=== PATIENT | female | born 1950 | race Two or more races ===

== ENCOUNTER 2017-04-01 18:41 | Emergency (ER) | payer MEDICARE ==
[~2017-04-01] VITALS: Ht 162.6 cm; Wt 75.7 kg
[~2017-04-01 18:41] MED LIST: BROM2.5T3 PO; VALS80TA2 PO
[2017-04-01] MEDS ORDERED: SITA1TAB2 PO (18:57)
[2017-04-01] MEDS ORDERED: OLME20TA15 PO (18:57)
[2017-04-01] MEDS ORDERED: IBUPROFEN 600 MG TABLET PO ONE (19:45)
[2017-04-01] MEDS ORDERED: IBUPROFEN 600 MG TABLET ONE (19:59)
--- NOTE | 2017-04-01 20:26 | NUR ---
Patient discharged to home in stable conditon. Written and verbal after care instructions given. Patient verbalizes understanding of instructions.
== END 2017-04-01 20:27 | disposition home or self-care (01) ==
LOC: ER 18:49
DX: S92.402A Displaced unspecified fracture of left great toe, initial encounter for closed fracture (principal); S80.02XA Contusion of left knee, initial encounter; S40.021A Contusion of right upper arm, initial encounter; S50.812A Abrasion of left forearm, initial encounter; M54.5 Low back pain; I10 Essential (primary) hypertension; E11.9 Type 2 diabetes mellitus without complications; C75.1 Malignant neoplasm of pituitary gland; Z88.6 Allergy status to analgesic agent; Z88.8 Allergy status to other drugs, medicaments and biological substances; W01.0XXA Fall on same level from slipping, tripping and stumbling without subsequent striking against object, initial encounter; Y93.89 Activity, other specified; Y99.8 Other external cause status; Y92.89 Other specified places as the place of occurrence of the external cause
CPT/HCPCS: 73562; 73660; A4663

== ENCOUNTER 2017-04-18 10:46 | Emergency (ER) | payer MEDICARE ==
[~2017-04-18] VITALS: Ht 162.6 cm; Wt 75.7 kg
[~2017-04-18 10:46] MED LIST changes: +OLME20TA21 PO; +SITA1TAB2 PO; -VALS80TA2 PO
--- NOTE | 2017-04-18 11:00 | NUR ---
FILI HUTCHISON AT THE BEDSIDE.
[2017-04-18] MEDS ORDERED: HYDROMORPHONE 1 MG/1 ML DISP.SYRIN IM ONE (11:15)
[2017-04-18] MEDS ORDERED: ONDANSETRON 4 MG/2 ML VIAL IM ONE (11:15)
[2017-04-18] MEDS ORDERED: CHOL10002 PO (11:23)
[2017-04-18] MEDS ORDERED: HYDROMORPHONE 1 MG/1 ML DISP.SYRIN ONE (11:29)
[2017-04-18] MEDS ORDERED: ONDANSETRON 4 MG/2 ML VIAL ONE (11:29)
--- NOTE | 2017-04-18 12:01 | NUR ---
Patient is resting comfortably in bed with eyes closed, NAD noted.
--- NOTE | 2017-04-18 12:46 | NUR ---
Royal murillo in ED - 04/18/17 at 1254 by PERI Patient discharged to home in stable conditon. Written and verbal after care instructions given. Patient verbalizes understanding of instructions.
[2017-04-18] MEDS ORDERED: ONDANSETRON ODT 4 MG TAB.RAPDIS SL ONE (14:00)
--- NOTE | 2017-04-18 14:00 | NUR ---
DR MART MADE PATIENT AWARE OF TEST RESULTS.
[2017-04-18] MEDS ORDERED: ONDANSETRON ODT 4 MG TAB.RAPDIS ONE (14:03)
--- NOTE | 2017-04-18 14:06 | NUR ---
Patient discharged to home in stable conditon. Written and verbal after care instructions given. Patient verbalizes understanding of instructions.
== END 2017-04-18 14:09 | disposition home or self-care (01) ==
LOC: ER 10:46
DX: S22.31XA Fracture of one rib, right side, initial encounter for closed fracture (principal); I10 Essential (primary) hypertension; E11.9 Type 2 diabetes mellitus without complications; C75.1 Malignant neoplasm of pituitary gland; Z88.6 Allergy status to analgesic agent; Z88.8 Allergy status to other drugs, medicaments and biological substances; W18.30XA Fall on same level, unspecified, initial encounter; Y93.89 Activity, other specified; Y99.8 Other external cause status; Y92.89 Other specified places as the place of occurrence of the external cause
CPT/HCPCS: 71101; A4663; J1170; J2405; Q0162

== ENCOUNTER 2017-07-21 11:13 | Emergency (ER) | payer MEDICARE, BC ==
[~2017-07-21] VITALS: Ht 162.6 cm; Wt 74.8 kg
[~2017-07-21 11:13] MED LIST changes: +CHOL10002 PO
[2017-07-21] MEDS ORDERED: IBUPROFEN 600 MG TABLET PO ONE (11:30)
[2017-07-21] MEDS ORDERED: IBUPROFEN 600 MG TABLET ONE (11:47)
--- NOTE | 2017-07-21 13:21 | NUR ---
Patient discharged to home in stable conditon. Written and verbal after care instructions given. Patient verbalizes understanding of instructions.pt walks in steady gait. pt son to come and pick pulling machine operator the pt.
[2017-07-21 13:25] VITALS: BP 139/76
== END 2017-07-21 13:26 | disposition home or self-care (01) ==
LOC: ER 11:13
DX: M25.521 Pain in right elbow (principal); M25.532 Pain in left wrist; M25.421 Effusion, right elbow; E11.9 Type 2 diabetes mellitus without complications; I10 Essential (primary) hypertension; M79.7 Fibromyalgia; Z79.899 Other long term (current) drug therapy
CPT/HCPCS: 73060; 73080; 73090 ×2; 73110; 99284; A4663

== ENCOUNTER 2020-01-07 18:59 | Emergency (ER) | payer MEDICARE, BC ==
[~2020-01-07] VITALS: Ht 157.5 cm; Wt 70.3 kg
[~2020-01-07 18:59] MED LIST changes: +BROM2.5T15 PO; -BROM2.5T3 PO; +OLME20TA13 PO; -OLME20TA21 PO
--- NOTE | 2020-01-07 19:30 | NUR ---
Dr. Fuller at bedside for MSE.
[2020-01-07 21:11] VITALS: BP 140/75
--- NOTE | 2020-01-07 21:11 | NUR ---
Patient discharged to home in stable conditon. Written and verbal after care instructions given. Patient verbalizes understanding of instructions. PT ambulated out of ER with steady gait, no acute signs of distress, VSS, all belongings taken.
== END 2020-01-07 21:12 | disposition home or self-care (01) ==
LOC: ER 19:02
DX: S22.059A Unspecified fracture of T5-T6 vertebra, initial encounter for closed fracture (principal); E11.9 Type 2 diabetes mellitus without complications; I10 Essential (primary) hypertension; Z88.5 Allergy status to narcotic agent; Z79.899 Other long term (current) drug therapy; X58.XXXA Exposure to other specified factors, initial encounter; Y93.89 Activity, other specified; Y92.89 Other specified places as the place of occurrence of the external cause; Y99.8 Other external cause status
CPT/HCPCS: 71250; 73630; A4663

== ENCOUNTER 2020-07-09 20:02 | Emergency (ER) | payer MEDICARE, BC ==
[~2020-07-09] VITALS: Ht 157.5 cm; Wt 73.5 kg
--- NOTE | 2020-07-09 20:25 | NUR ---
Dr. Reeder at bedside for MSE
[2020-07-09 20:46] LABS: *BILIRUBIN,URIN NEGATIVE (NEGATIVE); *BLOOD, URINE NEGATIVE (NEGATIVE); *CLARITY,URINE CLEAR (CLEAR); *COLOR,URINE LIGHT YELLOW (YELLOW); *KETONES,URINE NEGATIVE (NEGATIVE); *UROBILINOGEN,URINE 0.2 E.U./dl (NORMAL); LEUKOCYTE ESTERASE ,URINE NEGATIVE (NEGATIVE); NITRITE, URINE NEGATIVE (NEGATIVE); PH,URINE 6.5 (5.0-8.0); UGLUCOSE NEGATIVE (NEGATIVE)
[2020-07-09 20:48] LABS: BASOPHILS % (AUTO) 0.9 % (0.0-2.0); EOSINOPHILS # (AUTO) 0.1 K/uL (0.0-0.7); EOSINOPHILS % (AUTO) 2.6 % (0.0-7.0); HEMATOCRIT 38.5 % (31.2-41.9); HEMOGLOBIN 12.8 g/dL (10.9-14.3); LYMPHOCYTES # (AUTO) 1.5 K/uL (20.0-40.0); LYMPHOCYTES % (AUTO) 34.7 % (20.5-51.5); MEAN CORPUSCULAR HGB CONC 33 g/dL (32.3-35.6); MEAN CORPUSCULAR VOLUME 84.4 fL (75.5-95.3); MONOCYTES # (AUTO) 0.4 K/uL (2.0-10.0); MONOCYTES % (AUTO) 9.7 % (0.0-11.0); NEUTROPHILS # (AUTO) 2.3 K/uL (1.8-8.9); NEUTROPHILS % (AUTO) 52.1 % (38.5-71.5); PLATELET COUNT (AUTO) 192 K/uL (179-408); RED BLOOD CELL COUNT(AUTO) 4.57 MIL/uL (3.63-4.92); WHITE BLOOD COUNT (AUTO) 4.4 K/uL (3.8-11.8)
[2020-07-09 20:56] LABS: CREATININE 1.2 mg/dL (0.6-1.3); POTASSIUM 3.8 mmol/L (3.5-5.1)
[2020-07-09 21:02] LABS: BILIRUBIN,TOTAL 0.3 mg/dL (0.2-1.0); TOTAL PROTEIN, SERUM 7.5 g/dL (6.4-8.2)
--- NOTE | 2020-07-09 21:25 | NUR ---
US at bedside
--- NOTE | 2020-07-09 21:53 | NUR ---
Patient discharged to home in stable condition. Written and verbal after care instructions given. Patient verbalizes understanding of instructions. Stressed follow up or return to ER for worsening s/s. aa/ox4. ambulatory with steady gait all belongings with pt
[2020-07-09 22:56] VITALS: BP 128/75
== END 2020-07-09 21:53 | disposition home or self-care (01) ==
LOC: ER 20:04
DX: R60.0 Localized edema (principal); R00.1 Bradycardia, unspecified; Z88.8 Allergy status to other drugs, medicaments and biological substances; I10 Essential (primary) hypertension; E11.9 Type 2 diabetes mellitus without complications; Z79.84 Long term (current) use of oral hypoglycemic drugs; G89.29 Other chronic pain; F41.9 Anxiety disorder, unspecified; M54.5 Low back pain; D36.9 Benign neoplasm, unspecified site
CPT/HCPCS: 36415; 85025; 85610; 93005; A4663

== ENCOUNTER 2021-09-16 12:10 | Inpatient (IN) | payer MEDICARE, BC ==
[~2021-09-16] VITALS: Ht 157.5 cm; Wt 72.6 kg
--- NOTE | 2021-09-16 12:12 | NUR ---
Pt ambulated to room 4B, and nursing staff at bedside.
--- NOTE | 2021-09-16 12:20 | NUR ---
Code Stroke activated by .
--- NOTE | 2021-09-16 12:22 | NUR ---
TELE NEUROLOGY ACTIVATED, CONNECT ID#[id number].
--- NOTE | 2021-09-16 12:30 | NUR ---
Pt to CT with Eric DUKE and manager technical services.
[2021-09-16 12:36] LABS: HEMATOCRIT 39.5 % (31.2-41.9); MEAN CORPUSCULAR HEMOGLOBIN 28.6 uug (24.7-32.8); MEAN CORPUSCULAR VOLUME 85.4 fL (75.5-95.3); PLATELET COUNT (AUTO) 184 K/uL (179-408)
[2021-09-16 12:43] LABS: CREATININE 1.2 mg/dL (0.6-1.3); POTASSIUM 4.3 mmol/L (3.5-5.1)
--- NOTE | 2021-09-16 12:45 | NUR ---
Pt back from CT, NAD noted at this time.
--- NOTE | 2021-09-16 13:10 | NUR ---
Problems occured with telemedicine system, we could hear no audio from the machine, but neurologist could hear us fine and see us fine. Called in a report to [employer] [id number] and opened a ticket #[id number].
--- NOTE | 2021-09-16 13:42 | NUR ---
Went through several procedures with tech support on telemed machine. It appears that it is fixed now.
[2021-09-16] MEDS ORDERED: CLOPIDOGREL 75 MG TABLET PO ONE (14:00)
[2021-09-16] MEDS ORDERED: ASPIRIN 81 MG TAB.CHEW PO ONE (14:00)
[2021-09-16] MEDS ORDERED: SWABABLE VALVE TRANSFER SET EA MC ONE (14:17)
[2021-09-16] MEDS ORDERED: IV NORMAL SALINE 250 ML IV ONE (14:17)
[2021-09-16] MEDS ORDERED: IOHEXOL 350 100 ML INFUS..BTL ONE (14:17)
[2021-09-16] MEDS ORDERED: ASPIRIN 81 MG TAB.CHEW ONE (14:22)
[2021-09-16] MEDS ORDERED: CLOPIDOGREL 75 MG TABLET ONE (14:22)
--- NOTE | 2021-09-16 14:35 | NUR ---
AFTER SCANNING PATIENT ABOUT 20 ML OF SALINE FLUSH INFILTRATED AND THE END OF THE SCAN. SPOKE WITH SARA AND FRANKLIN DUKE BOUT IT. SARA PUT COLD PACK ON IT.
--- NOTE | 2021-09-16 15:42 | NUR ---
Left AC IV infiltrated in CT. Pt c/o pain at site, used icepack. replaced IV w/20g left hand.
[2021-09-16] MEDS ORDERED: BROMOCRIPTINE MESYLATE 2.5 MG PO SCH (17:00)
[2021-09-16] MEDS ORDERED: ACETAMINOPHEN 325 MG TABLET PO PRN (17:15)
[2021-09-16] MEDS ORDERED: DEXTROSE 50% 50 ML DISP.SYRIN IV PRN (17:15)
--- NOTE | 2021-09-16 18:35 | NUR ---
Gave pt dinner tray.
--- NOTE | 2021-09-16 21:29 | NUR ---
GAVE REPORT TO LEILANI REYNOLDS.
--- NOTE | 2021-09-16 21:46 | NUR ---
Pt. admitted to TELE , under care of CASH ACCOUNTANT Kushal Molina Dx: Syncope Belongs List completed
[2021-09-16 22:00] VITALS: BP 107/56
[2021-09-16] MEDS: ATORVASTATIN 40 MG TABLET PO SCH (22:00)
[2021-09-16] MEDS: BLOOD SUGAR DIAGNOSTIC 1 EACH STRIP VI SCH (22:00)
--- NOTE | 2021-09-16 22:00 | NUR ---
Admitted patient in Tele unit from ER via [facility] accompanied by staff nurse.Dx of TIA and syncope .Patient AALox4.Denies numbness on Rt arm.No c/o pain or discomfort at this time. On Ra. No s/s of distress noted.IV on left hand patent and intact.Patient able to ambulates to bathroom .Voided well.Call light with in reach.Will continue to monitor.
[2021-09-16] MEDS: INSULIN REGULAR, HUMAN 300 UNIT/3 ML VIAL SQ PRN (22:44)
[2021-09-17] VITALS: BP 115/49
[2021-09-17 04:00] VITALS: BP_SYST 121; BP_SYST 144; BP_DIAS 48; BP_DIAS 60
[2021-09-17] MEDS: PANTOPRAZOLE SODIUM 40 MG TABLET.DR PO SCH (06:12)
[2021-09-17 06:29] LABS: HEMATOCRIT 37.3 % (31.2-41.9); MEAN CORPUSCULAR HEMOGLOBIN 28.4 uug (24.7-32.8); MEAN CORPUSCULAR VOLUME 84.8 fL (75.5-95.3); PLATELET COUNT (AUTO) 175 K/uL (179-408)
[2021-09-17] MEDS: BLOOD SUGAR DIAGNOSTIC 1 EACH STRIP VI SCH ×4 (06:42→20:17)
[2021-09-17 07:00] LABS: THYROID STIMULATING HORMONE 1.66 mIU/mL (0.358-3.740)
[2021-09-17 07:08] LABS: POTASSIUM 4.4 mmol/L (3.5-5.1)
[2021-09-17] MEDS: CHOLECALCIFEROL 1,000 UNIT TABLET PO SCH (08:57)
[2021-09-17] MEDS: LOSARTAN POTASSIUM 50 MG TABLET PO SCH (08:57)
[2021-09-17] MEDS: ASPIRIN EC 81 MG TABLET.DR PO SCH (08:57)
[2021-09-17] MEDS: CLOPIDOGREL 75 MG TABLET PO SCH (08:57)
[2021-09-17] MEDS ORDERED: OLMESARTAN MEDOXOMIL 10 MG PO SCH (09:00)
[2021-09-17] MEDS: INSULIN REGULAR, HUMAN 300 UNIT/3 ML VIAL SQ PRN ×3 (09:03→20:19)
--- NOTE | 2021-09-17 09:36 | NUR ---
Received pt from night club manager RN. Pt is a/o x 4, no complaint of right arm numbness at this time. Pt had consult with Speech therapist and PT, no complications with either, pt is independent in ambulation and able to swallow without aspiration. Pt does not present with any acute distress or discomfort at this time. Cooperative with all medications. Iv intact and patent. Will continue to monitor.
[2021-09-17 10:59] VITALS: BP 143/73
[2021-09-17] MEDS ORDERED: diphenhydrAMINE 50 MG/1 ML VIAL IM ONE (11:00)
[2021-09-17] MEDS ORDERED: PROCHLORPERAZINE EDISYLATE 10 MG/2 ML VIAL IM ONE (11:00)
[2021-09-17 11:27] VITALS: BP 143/73
--- NOTE | 2021-09-17 15:30 | NUR ---
Clinical Social Work Note SW consult was requested for stroke. Patient is a 70 year old female who is alert and oriented x3. Patient presents with a withdrawn mood and flat affect. Patient stated that she was not in for a stroke and she was brought in for numbness. Patient appeared to be confused about her stroke. Patient has the support of her son, Peewee Garcia. SW met with patient and conducted the PHQ9 depression screening and patient scored (2). Oracle Forms Developer informed about the importance of stroke. Patient accepted stroke referrals such as: Stroke Family Warmline at (2-878-8-STROKE) and Caring for a stroke survivor ( ). abatement worker also educated patient on the signs of Stroke and to immediately call 911. Oracle Forms Developer provided patient with a stroke educational packet with information such as; Dietary food, what stroke is, risks, emotional support, finding support, medical management, and effects of stroke.
[2021-09-17 15:32] VITALS: BP 121/63
[2021-09-17] MEDS: ATORVASTATIN 40 MG TABLET PO SCH (20:17)
--- NOTE | 2021-09-18 05:37 | NUR ---
Slept throughout the night. Denies pain or SOB. Patient is alert and oriented. All extremities WNL. PERRLA. Scheduled for MRI today. Safety and comfort provided, no other issues or concerns at this time, will endorse to day shift.
[2021-09-18 06:38] LABS: HEMATOCRIT 39.2 % (31.2-41.9); MEAN CORPUSCULAR HEMOGLOBIN 28.6 uug (24.7-32.8); MEAN CORPUSCULAR VOLUME 85.7 fL (75.5-95.3); PLATELET COUNT (AUTO) 176 K/uL (179-408)
[2021-09-18 06:54] LABS: CREATININE 1.1 mg/dL (0.6-1.3); MAGNESIUM 1.9 mg/dL (1.8-2.4); POTASSIUM 4.7 mmol/L (3.5-5.1)
[2021-09-18] MEDS: PANTOPRAZOLE SODIUM 40 MG TABLET.DR PO SCH (06:59)
[2021-09-18] MEDS: BLOOD SUGAR DIAGNOSTIC 1 EACH STRIP VI SCH ×4 (07:08→20:18)
--- NOTE | 2021-09-18 07:14 | NUR ---
Pt states that if an K[place]a calls to only let her know that she is okay and not to give too much information about her visit.
[2021-09-18] MEDS: INSULIN REGULAR, HUMAN 300 UNIT/3 ML VIAL SQ PRN ×4 (09:48→20:20)
[2021-09-18] MEDS: CHOLECALCIFEROL 1,000 UNIT TABLET PO SCH (09:50)
[2021-09-18] MEDS: CLOPIDOGREL 75 MG TABLET PO SCH (09:50)
[2021-09-18] MEDS: ASPIRIN EC 81 MG TABLET.DR PO SCH (09:50)
[2021-09-18] MEDS: LOSARTAN POTASSIUM 50 MG TABLET PO SCH (09:52)
[2021-09-18 10:32] VITALS: BP 135/63
--- NOTE | 2021-09-18 13:00 | NUR ---
EMT in facility to take patient to [place] for mri, per patient i need valium i cant go without it, i am very claustrophobic. Explained to patient that i need to call [facility] for an order. notified [facility] with new order for valium noted and carried out.
[2021-09-18] MEDS ORDERED: DIAZEPAM 10 MG/2 ML DISP.SYRIN IV PRN (14:00)
--- NOTE | 2021-09-18 15:50 | NUR ---
patient returned from MRI, patient stable at this time, resting in bed
--- NOTE | 2021-09-18 16:00 | NUR ---
patient IV dislodged, asked to insert a line, patient states " i dont think i need it" will try again later
[2021-09-18 20:45] VITALS: BP 146/58
[2021-09-19 00:50] VITALS: BP 122/51
[2021-09-19 05:04] VITALS: BP 157/56
--- NOTE | 2021-09-19 05:35 | NUR ---
Pt slept throughout the night. Denies pain or SOB. Patient refused to have IV reinserted, states that she wants to go home and doesn't need it. Pt educated on importance of having an IV for emergency situations but patient still refuses. Safety and comfort provided. No deficits noted. Able to make needs known. Will endorse to day shift.
[2021-09-19] MEDS: PANTOPRAZOLE SODIUM 40 MG TABLET.DR PO SCH (06:09)
[2021-09-19] MEDS: BLOOD SUGAR DIAGNOSTIC 1 EACH STRIP VI SCH (06:33)
--- NOTE | 2021-09-19 08:00 | NUR ---
awake alert and oriented, denies of any discomfort, ambulatory, tele SB 52, wants to go home today, inform that hospitalist is not in yet and will inform him when he's in, explained plan of care- verbalized understanding, safety measures maintained, call light within reach
[2021-09-19] MEDS: INSULIN REGULAR, HUMAN 300 UNIT/3 ML VIAL SQ PRN (08:31)
[2021-09-19] MEDS: CLOPIDOGREL 75 MG TABLET PO SCH (08:31)
[2021-09-19] MEDS: CHOLECALCIFEROL 1,000 UNIT TABLET PO SCH (08:31)
[2021-09-19] MEDS: ASPIRIN EC 81 MG TABLET.DR PO SCH (08:31)
[2021-09-19] MEDS: LOSARTAN POTASSIUM 50 MG TABLET PO SCH (08:32)
--- NOTE | 2021-09-19 10:56 | NUR ---
Mitchell Molina PUSH BUTTON SWITCH ASSEMBLER here and informed of pt's desire to go home, will be discharged
[2021-09-19] MEDS ORDERED: CLOP75TA33 PO (10:57)
[2021-09-19] MEDS ORDERED: ASPI-618 PO (10:57)
[2021-09-19 11:11] VITALS: BP 158/56
--- NOTE | 2021-09-19 11:30 | NUR ---
Discharge instructions given- prescriptions were e-prescribed to preferred pharmacy- verbalized understanding, id bracelets removed, escorted in stable condition to lobby with all belongings where son is waiting.
== END 2021-09-19 11:30 | disposition home or self-care (01) | DRG 68 ==
LOC: ER 12:10 → TRANSITION 16:59 → TELE3 21:29
PROVIDERS: ADMIT Nurse Practitioner Family; ATTEND Nurse Practitioner Family
DX: I65.21 Occlusion and stenosis of right carotid artery (principal); M79.7 Fibromyalgia; I67.1 Cerebral aneurysm, nonruptured; I10 Essential (primary) hypertension; Z82.49 Family history of ischemic heart disease and other diseases of the circulatory system; G89.29 Other chronic pain; M54.50 Low back pain, unspecified; Z20.822 Contact with and (suspected) exposure to COVID-19; R29.700 NIHSS score 0; E11.65 Type 2 diabetes mellitus with hyperglycemia; Z79.84 Long term (current) use of oral hypoglycemic drugs; D35.2 Benign neoplasm of pituitary gland; R20.0 Anesthesia of skin; Z79.899 Other long term (current) drug therapy
CPT/HCPCS: 36415; 70030-TC; 70450; 70496; 70551; 71045; 83735; 84443; 85025; 85730; 93005; 93307; 93880; 97161; A4663; G0378; J0780; J1200; J3360; J7050; Q9967

== ENCOUNTER 2023-02-27 15:01 | Emergency (ER) | payer BC, MEDICARE, OTHER ==
[~2023-02-27] VITALS: Ht 157.5 cm; Wt 70.8 kg
[~2023-02-27 15:01] MED LIST changes: +ASPI-618 PO; +CLOP75TA33 PO
[2023-02-27] MEDS ORDERED: BACITRACIN ZINC OINT 15 GM TUBE ONE (15:27)
--- NOTE | 2023-02-27 15:28 | NUR ---
Pt seen by MD for bedside Eval. Safety measures in place. Will continue to monitor.
[2023-02-27] MEDS ORDERED: ACETAMINOPHEN ES 500 MG TABLET PO ONE (15:30)
[2023-02-27] MEDS ORDERED: ACETAMINOPHEN ES 500 MG TABLET ONE (15:34)
[2023-02-27] MEDS ORDERED: CYCL10TA9 PO (16:57)
[2023-02-27] MEDS ORDERED: BACITRACIN ZINC OINT 15 GM TUBE TOP ONE (17:00)
[2023-02-27] MEDS ORDERED: CYCLOBENZAPRINE HCL 10 MG TABLET PO ONE (17:00)
[2023-02-27] MEDS ORDERED: CYCLOBENZAPRINE HCL 10 MG TABLET ONE (17:12)
[2023-02-27 17:14] VITALS: BP 155/70
--- NOTE | 2023-02-27 17:14 | NUR ---
Patient discharged to home in stable condition. Written and verbal after care instructions given. Patient verbalizes understanding of instructions. Stressed follow up or return to ER for worsening s/s.
== END 2023-02-27 17:16 | disposition home or self-care (01) ==
LOC: ER 15:03
DX: S62.641A Nondisplaced fracture of proximal phalanx of left index finger, initial encounter for closed fracture (principal); S05.12XA Contusion of eyeball and orbital tissues, left eye, initial encounter; S80.212A Abrasion, left knee, initial encounter; M25.512 Pain in left shoulder; M54.2 Cervicalgia; I10 Essential (primary) hypertension; E11.9 Type 2 diabetes mellitus without complications; Z88.5 Allergy status to narcotic agent; Z88.8 Allergy status to other drugs, medicaments and biological substances; Z79.82 Long term (current) use of aspirin; Z79.01 Long term (current) use of anticoagulants; Z79.899 Other long term (current) drug therapy; W01.0XXA Fall on same level from slipping, tripping and stumbling without subsequent striking against object, initial encounter; Y93.89 Activity, other specified; Y92.89 Other specified places as the place of occurrence of the external cause; Y99.8 Other external cause status
CPT/HCPCS: 70450; 70486; 72125; 73030; 73130; 73140; A4663; A9150

== ENCOUNTER 2023-06-25 18:55 | Inpatient (IN) | payer OTHER ==
[~2023-06-25] VITALS: Ht 157.5 cm; Wt 71.2 kg
[~2023-06-25 18:55] MED LIST changes: +CYCL10TA9 PO
[2023-06-25] MEDS ORDERED: ONDANSETRON 4 MG/2 ML VIAL IV ONE (19:30)
[2023-06-25] MEDS ORDERED: OXYCODONE/APAP 5-325 MG TABLET PO ONE (19:30)
[2023-06-25 19:39] LABS: BASOPHILS # (AUTO) 0.1 K/UL (0.0-0.2); BASOPHILS % (AUTO) 1.8 % (0.0-2.0); DIFFERENTIAL COMMENT 0; EOSINOPHILS # (AUTO) 0.1 K/uL (0.0-0.7); EOSINOPHILS % (AUTO) 2.3 % (0.0-7.0); HEMATOCRIT 41.1 % (31.2-41.9); HEMOGLOBIN 13.5 g/dL (10.9-14.3); LYMPHOCYTES # (AUTO) 1.2 K/uL (0.8-4.8); LYMPHOCYTES % (AUTO) 27.9 % (20.5-51.5); MEAN CORPUSCULAR HEMOGLOBIN 27.7 uug (24.7-32.8); MEAN CORPUSCULAR HGB CONC 33 g/dL (32.3-35.6); MONOCYTES # (AUTO) 0.4 K/uL (0.1-1.30); NEUTROPHILS # (AUTO) 2.5 K/uL (1.8-8.9); PLATELET COUNT (AUTO) 184 K/uL (179-408); RED BLOOD CELL COUNT(AUTO) 4.89 MIL/uL (3.63-4.92); RED CELL DISTRIBUTION WIDTH 14.8 % (12.3-17.7); WHITE BLOOD COUNT (AUTO) 4.3 K/uL (3.8-11.8)
[2023-06-25] MEDS ORDERED: ONDANSETRON 4 MG/2 ML VIAL ONE (19:40)
[2023-06-25] MEDS ORDERED: OXYCODONE/APAP 5-325 MG TABLET ONE (19:40)
[2023-06-25 19:45] LABS: CALCIUM 8.7 mg/dL (8.5-10.1); CARBON DIOXIDE 24 mmol/L (21-32); CHLORIDE 104 mmol/L (98-107); CREATININE 1.2 mg/dL (0.6-1.3); GLUCOSE 166 mg/dL (74-106); POTASSIUM 4.1 mmol/L (3.5-5.1); SODIUM SERUM 140 mmol/L (136-145); UREA NITROGEN, BLOOD 21 mg/dL (7-18)
[2023-06-25 19:54] LABS: ALANINE AMINOTRANSFERASE 19 U/L (14-59); ALBUMIN 3.5 g/dL (3.4-5.0); ALKALINE PHOSPHATASE 93 U/L (50-136); ASPARTATE AMINOTRANSFERASE 16 U/L (15-37); BILIRUBIN,DIRECT 0.1 mg/dL (0.0-0.2); BILIRUBIN,TOTAL 0.3 mg/dL (0.2-1.0); TOTAL PROTEIN, SERUM 7.4 g/dL (6.4-8.2)
[2023-06-25] MEDS ORDERED: SWABABLE VALVE TRANSFER SET EA MC ONE (19:57)
[2023-06-25] MEDS ORDERED: IOHEXOL 350 100 ML INFUS..BTL ONE (19:58)
[2023-06-25] MEDS ORDERED: IV NORMAL SALINE 250 ML IV ONE (19:58)
[2023-06-26] MEDS ORDERED: REMEDY ESSENTIAL ZINC PASTE 113 GM TP PRN (00:30)
[2023-06-26] MEDS ORDERED: MAGNESIUM HYDROXIDE 30 ML LIQUID UDC PO PRN (00:30)
[2023-06-26] MEDS ORDERED: ONDANSETRON 4 MG/2 ML VIAL IV PRN (00:30)
[2023-06-26] MEDS: ENOXAPARIN SODIUM 40 MG/0.4 ML DISP.SYRIN SQ SCH ×2 (02:11→20:43)
[2023-06-26] MEDS: ZOLPIDEM 5 MG TABLET PO PRN ×2 (02:11→02:23)
[2023-06-26 02:30] VITALS: BP 135/52; TEMP 98; O2SAT 94
[2023-06-26 04:13] LABS: *CLARITY,URINE CLEAR (CLEAR); *COLOR,URINE LIGHT YELLOW (YELLOW)
[2023-06-26 04:14] LABS: *BILIRUBIN,URIN NEGATIVE (NEGATIVE); *BLOOD, URINE NEGATIVE (NEGATIVE); *KETONES,URINE NEGATIVE (NEGATIVE); *PROTEIN,URINE NEGATIVE (NEGATIVE); *UROBILINOGEN,URINE 0.2 E.U./dl (NORMAL); LEUKOCYTE ESTERASE ,URINE NEGATIVE (NEGATIVE); NITRITE, URINE NEGATIVE (NEGATIVE); UGLUCOSE NEGATIVE (NEGATIVE)
[2023-06-26 05:29] VITALS: BP 142/65; TEMP 97.6
[2023-06-26] MEDS: PANTOPRAZOLE SODIUM 40 MG TABLET.DR PO SCH (06:19)
[2023-06-26] MEDS ORDERED: HOME MED MISCELLANEOUS XX SCH ×3 (10:00)
[2023-06-26] MEDS ORDERED: CLOPIDOGREL 75 MG TABLET PO SCH (10:00)
[2023-06-26] MEDS ORDERED: ASPIRIN EC 81 MG TABLET.DR PO SCH (10:00)
[2023-06-26] MEDS ORDERED: DEXTROSE 50% 50 ML DISP.SYRIN IV PRN (10:00)
[2023-06-26] MEDS ORDERED: CHOLECALCIFEROL 1,000 UNIT TABLET PO SCH (10:00)
[2023-06-26 12:00] VITALS: BP 153/55; TEMP 98; O2SAT 97
[2023-06-26] MEDS: INSULIN REGULAR, HUMAN 300 UNIT/3 ML VIAL SQ PRN ×2 (12:28→16:54)
[2023-06-26] MEDS: BLOOD SUGAR DIAGNOSTIC 1 EACH STRIP VI SCH ×3 (12:28→20:44)
[2023-06-26] MEDS ORDERED: LOSARTAN POTASSIUM 50 MG TABLET PO SCH (12:40)
[2023-06-26] MEDS: LOSARTAN POTASSIUM 50 MG TABLET PO SCH ×2 (15:39→20:41)
[2023-06-26 16:10] VITALS: BP 123/57; TEMP 98; O2SAT 97
[2023-06-26] MEDS: ACETAMINOPHEN 325 MG TABLET PO PRN (16:55)
[2023-06-26 20:00] VITALS: BP 149/67; TEMP 97.8; O2SAT 98
[2023-06-27] VITALS: BP 115/52; TEMP 98.3; O2SAT 99
[2023-06-27] MEDS: PANTOPRAZOLE SODIUM 40 MG TABLET.DR PO SCH (06:25)
[2023-06-27] MEDS: BLOOD SUGAR DIAGNOSTIC 1 EACH STRIP VI SCH ×4 (06:25→20:18)
[2023-06-27 07:24] LABS: BASOPHILS % (AUTO) 0.5 % (0.0-2.0); EOSINOPHILS # (AUTO) 0.1 K/uL (0.0-0.7); EOSINOPHILS % (AUTO) 1.8 % (0.0-7.0); HEMATOCRIT 39.9 % (31.2-41.9); HEMOGLOBIN 13.2 g/dL (10.9-14.3); LYMPHOCYTES % (AUTO) 31.2 % (20.5-51.5); MEAN CORPUSCULAR HEMOGLOBIN 27.8 uug (24.7-32.8); MEAN CORPUSCULAR HGB CONC 33 g/dL (32.3-35.6); MEAN CORPUSCULAR VOLUME 83.9 fL (75.5-95.3); MONOCYTES # (AUTO) 0.3 K/uL (0.1-1.30); MONOCYTES % (AUTO) 10.1 % (0.0-11.0); NEUTROPHILS # (AUTO) 1.8 K/uL (1.8-8.9); NEUTROPHILS % (AUTO) 56.4 % (38.5-71.5); PLATELET COUNT (AUTO) 164 K/uL (179-408); RED BLOOD CELL COUNT(AUTO) 4.76 MIL/uL (3.63-4.92); RED CELL DISTRIBUTION WIDTH 14.4 % (12.3-17.7); WHITE BLOOD COUNT (AUTO) 3.1 K/uL (3.8-11.8)
[2023-06-27 07:32] LABS: DIFFERENTIAL COMMENT 1
[2023-06-27 07:39] LABS: CALCIUM 8.9 mg/dL (8.5-10.1); CARBON DIOXIDE 30 mmol/L (21-32); CHLORIDE 106 mmol/L (98-107); CREATININE 1.1 mg/dL (0.6-1.3); GLUCOSE 182 mg/dL (74-106); MAGNESIUM 1.9 mg/dL (1.8-2.4); PHOSPHOROUS 3.5 mg/dL (2.5-4.9); POTASSIUM 4.9 mmol/L (3.5-5.1); SODIUM SERUM 142 mmol/L (136-145); THYROID STIMULATING HORMONE 1.235 mIU/mL (0.358-3.740); UREA NITROGEN, BLOOD 17 mg/dL (7-18)
[2023-06-27] MEDS: INSULIN REGULAR, HUMAN 300 UNIT/3 ML VIAL SQ PRN ×4 (08:21→20:19)
[2023-06-27] MEDS: LOSARTAN POTASSIUM 50 MG TABLET PO SCH ×2 (08:31→20:14)
[2023-06-27] MEDS ORDERED: LORAZEPAM 1 MG TABLET PO SCH (08:45)
[2023-06-27 11:50] VITALS: BP 140/59; TEMP 98.4; O2SAT 95
[2023-06-27 15:46] VITALS: BP 117/50; TEMP 98.7; O2SAT 98
[2023-06-27] MEDS ORDERED: IOHEXOL 350 100 ML INFUS..BTL ONE (16:52)
[2023-06-27] MEDS ORDERED: SWABABLE VALVE TRANSFER SET EA MC ONE (16:52)
[2023-06-27] MEDS ORDERED: IV NORMAL SALINE 250 ML IV ONE (16:52)
[2023-06-27] MEDS: ENOXAPARIN SODIUM 40 MG/0.4 ML DISP.SYRIN SQ SCH (20:15)
[2023-06-27 21:23] VITALS: BP 116/50; TEMP 98.2; O2SAT 99
[2023-06-28] MEDS: ACETAMINOPHEN 325 MG TABLET PO PRN (00:53)
[2023-06-28 05:24] VITALS: BP 123/50; TEMP 98.2; O2SAT 99
[2023-06-28] MEDS: PANTOPRAZOLE SODIUM 40 MG TABLET.DR PO SCH (06:02)
[2023-06-28] MEDS: BLOOD SUGAR DIAGNOSTIC 1 EACH STRIP VI SCH ×4 (06:31→21:30)
[2023-06-28 07:36] LABS: BASOPHILS % (AUTO) 0.5 % (0.0-2.0); EOSINOPHILS # (AUTO) 0.1 K/uL (0.0-0.7); EOSINOPHILS % (AUTO) 1.9 % (0.0-7.0); HEMATOCRIT 40.7 % (31.2-41.9); HEMOGLOBIN 13.3 g/dL (10.9-14.3); LYMPHOCYTES # (AUTO) 1.1 K/uL (0.8-4.8); LYMPHOCYTES % (AUTO) 32.5 % (20.5-51.5); MEAN CORPUSCULAR HEMOGLOBIN 27.6 uug (24.7-32.8); MEAN CORPUSCULAR HGB CONC 33 g/dL (32.3-35.6); MEAN CORPUSCULAR VOLUME 84.2 fL (75.5-95.3); MONOCYTES # (AUTO) 0.3 K/uL (0.1-1.30); MONOCYTES % (AUTO) 9.5 % (0.0-11.0); NEUTROPHILS # (AUTO) 1.9 K/uL (1.8-8.9); NEUTROPHILS % (AUTO) 55.6 % (38.5-71.5); PLATELET COUNT (AUTO) 163 K/uL (179-408); RED BLOOD CELL COUNT(AUTO) 4.83 MIL/uL (3.63-4.92); RED CELL DISTRIBUTION WIDTH 14.3 % (12.3-17.7); WHITE BLOOD COUNT (AUTO) 3.4 K/uL (3.8-11.8)
[2023-06-28 07:38] LABS: DIFFERENTIAL COMMENT 1
[2023-06-28] MEDS: LOSARTAN POTASSIUM 50 MG TABLET PO SCH ×2 (08:37→21:49)
[2023-06-28] MEDS: INSULIN REGULAR, HUMAN 300 UNIT/3 ML VIAL SQ PRN ×3 (08:39→17:01)
[2023-06-28 11:04] LABS: CALCIUM 9.3 mg/dL (8.5-10.1); CARBON DIOXIDE 27 mmol/L (21-32); CHLORIDE 102 mmol/L (98-107); CREATININE 1.1 mg/dL (0.6-1.3); GLUCOSE 176 mg/dL (74-106); MAGNESIUM 1.9 mg/dL (1.8-2.4); PHOSPHOROUS 3.6 mg/dL (2.5-4.9); POTASSIUM 4.8 mmol/L (3.5-5.1); SODIUM SERUM 139 mmol/L (136-145); UREA NITROGEN, BLOOD 20 mg/dL (7-18)
[2023-06-28 11:52] VITALS: BP 144/72; TEMP 98.6; O2SAT 99
[2023-06-28 15:56] VITALS: BP 116/70; TEMP 98.5; O2SAT 96
[2023-06-28] MEDS: ALPRAZOLAM 0.25 MG TABLET PO PRN (17:29)
[2023-06-28 20:20] VITALS: BP 116/70; TEMP 98; O2SAT 96
[2023-06-28] MEDS: ATORVASTATIN 20 MG TABLET PO SCH (21:50)
[2023-06-28] MEDS: ENOXAPARIN SODIUM 40 MG/0.4 ML DISP.SYRIN SQ SCH (22:11)
[2023-06-29] MEDS: ACETAMINOPHEN 325 MG TABLET PO PRN ×2 (00:53→23:15)
[2023-06-29] MEDS: PANTOPRAZOLE SODIUM 40 MG TABLET.DR PO SCH (06:25)
[2023-06-29] MEDS: BLOOD SUGAR DIAGNOSTIC 1 EACH STRIP VI SCH ×4 (06:32→20:37)
[2023-06-29] MEDS: ASPIRIN 81 MG TAB.CHEW PO SCH (08:30)
[2023-06-29] MEDS: LOSARTAN POTASSIUM 50 MG TABLET PO SCH ×2 (08:30→20:52)
[2023-06-29] MEDS: INSULIN REGULAR, HUMAN 300 UNIT/3 ML VIAL SQ PRN ×3 (08:32→17:08)
[2023-06-29] MEDS ORDERED: ATOR20TA PO (10:08)
[2023-06-29] MEDS ORDERED: ASPI81TA31 PO (10:08)
[2023-06-29 11:55] VITALS: BP 130/74; TEMP 98.4; O2SAT 96
[2023-06-29 20:00] VITALS: BP 121/55; TEMP 98.4; O2SAT 98
[2023-06-29] MEDS: ATORVASTATIN 20 MG TABLET PO SCH (20:52)
[2023-06-29] MEDS: ENOXAPARIN SODIUM 40 MG/0.4 ML DISP.SYRIN SQ SCH (20:53)
[2023-06-29] MEDS: ALPRAZOLAM 0.25 MG TABLET PO PRN (23:18)
[2023-06-30] MEDS ORDERED: HYDROCODONE/APAP 5-325MG TABLET PO ONE (01:45)
[2023-06-30 04:00] VITALS: BP 114/58; TEMP 97.9
[2023-06-30] MEDS: PANTOPRAZOLE SODIUM 40 MG TABLET.DR PO SCH (06:04)
[2023-06-30] MEDS: BLOOD SUGAR DIAGNOSTIC 1 EACH STRIP VI SCH ×2 (06:31→12:15)
[2023-06-30] MEDS: INSULIN REGULAR, HUMAN 300 UNIT/3 ML VIAL SQ PRN (08:50)
[2023-06-30] MEDS: LOSARTAN POTASSIUM 50 MG TABLET PO SCH (09:29)
[2023-06-30] MEDS: ASPIRIN 81 MG TAB.CHEW PO SCH (09:29)
[2023-06-30 12:00] VITALS: BP 130/58; TEMP 97.9; O2SAT 99
== END 2023-06-30 14:50 | disposition home or self-care (01) | DRG 66 ==
LOC: ER 19:03 → MEDSURG3 06-26 00:28 → TELE3 06-26 01:27 → MEDSURG3 06-27 10:00
PROVIDERS: ADMIT Nurse Practitioner Acute Care; ATTEND Nurse Practitioner Acute Care
DX: I63.9 Cerebral infarction, unspecified (principal); R41.3 Other amnesia; E11.65 Type 2 diabetes mellitus with hyperglycemia; E66.9 Obesity, unspecified; Z68.28 Body mass index [BMI] 28.0-28.9, adult; E78.5 Hyperlipidemia, unspecified; F43.9 Reaction to severe stress, unspecified; I10 Essential (primary) hypertension; M79.7 Fibromyalgia; Z86.73 Personal history of transient ischemic attack (TIA), and cerebral infarction without residual deficits; R51.9 Headache, unspecified; R29.701 NIHSS score 1; R00.1 Bradycardia, unspecified; Z79.84 Long term (current) use of oral hypoglycemic drugs; Z79.82 Long term (current) use of aspirin
CPT/HCPCS: 36415; 70450; 70496; 70551; 71045; 83735; 84100; 84443; 84484; 85025; 85730; 93005; 93307; A4663; G0378; J1650; J1815; J2405; Q9967

== ENCOUNTER 2023-08-16 22:03 | Inpatient (IN) | payer OTHER ==
[~2023-08-16] VITALS: Ht 157.5 cm; Wt 63.6 kg
[~2023-08-16 22:03] MED LIST changes: -ASPI-618 PO; +ASPI81TA31 PO; +ATOR20TA PO; -CHOL10002 PO; -CLOP75TA33 PO; -CYCL10TA9 PO; -SITA1TAB2 PO
[2023-08-16 22:55] LABS: HEMATOCRIT 37.3 % (31.2-41.9); HEMOGLOBIN 12.3 g/dL (10.9-14.3); MEAN CORPUSCULAR VOLUME 85.1 fL (75.5-95.3); RED BLOOD CELL COUNT(AUTO) 4.38 MIL/uL (3.63-4.92)
[2023-08-16 23:06] LABS: BASOPHILS % (AUTO) 0.8 % (0.0-2.0); DIFFERENTIAL COMMENT 0; EOSINOPHILS # (AUTO) 0.1 K/uL (0.0-0.7); EOSINOPHILS % (AUTO) 2.7 % (0.0-7.0); LYMPHOCYTES # (AUTO) 1.2 K/uL (0.8-4.8); LYMPHOCYTES % (AUTO) 30.9 % (20.5-51.5); MEAN CORPUSCULAR HEMOGLOBIN 27.9 uug (24.7-32.8); MEAN CORPUSCULAR HGB CONC 33 g/dL (32.3-35.6); MONOCYTES # (AUTO) 0.4 K/uL (0.1-1.30); MONOCYTES % (AUTO) 9.9 % (0.0-11.0); NEUTROPHILS # (AUTO) 2.2 K/uL (1.8-8.9); NEUTROPHILS % (AUTO) 55.7 % (38.5-71.5); PLATELET COUNT (AUTO) 162 K/uL (179-408); RED CELL DISTRIBUTION WIDTH 14.8 % (12.3-17.7); WHITE BLOOD COUNT (AUTO) 3.9 K/uL (3.8-11.8)
[2023-08-16 23:11] LABS: CALCIUM 8.7 mg/dL (8.5-10.1); CARBON DIOXIDE 26 mmol/L (21-32); CHLORIDE 101 mmol/L (98-107); CREATININE 1.2 mg/dL (0.6-1.3); GLUCOSE 162 mg/dL (74-106); POTASSIUM 3.9 mmol/L (3.5-5.1); SODIUM SERUM 138 mmol/L (136-145); UREA NITROGEN, BLOOD 25 mg/dL (7-18)
[2023-08-16 23:24] LABS: ALANINE AMINOTRANSFERASE 37 U/L (14-59); ALBUMIN 3.5 g/dL (3.4-5.0); ALKALINE PHOSPHATASE 105 U/L (50-136); ASPARTATE AMINOTRANSFERASE 33 U/L (15-37); BILIRUBIN,DIRECT 0.1 mg/dL (0.0-0.2); BILIRUBIN,TOTAL 0.4 mg/dL (0.2-1.0); NT-PRO BNP 207 pg/mL (0-125); TOTAL PROTEIN, SERUM 7.1 g/dL (6.4-8.2)
[2023-08-17] MEDS ORDERED: DIABETIC MED PO (04:27)
[2023-08-17] MEDS ORDERED: Medication Not On Formulary EA (Bromocriptine Mesylate 2.5 MG) PO SCH (04:30)
[2023-08-17] MEDS ORDERED: MAGNESIUM HYDROXIDE 30 ML LIQUID UDC PO PRN (04:30)
[2023-08-17] MEDS ORDERED: REMEDY ESSENTIAL ZINC PASTE 113 GM TP PRN (04:30)
[2023-08-17] MEDS ORDERED: NITROGLYCERIN 0.4 MG/TAB BOTTLE SL PRN (04:30)
[2023-08-17] MEDS ORDERED: ONDANSETRON 4 MG/2 ML VIAL IV PRN (04:30)
[2023-08-17] MEDS ORDERED: ACETAMINOPHEN 325 MG TABLET PO PRN (04:30)
[2023-08-17] MEDS ORDERED: ASPIRIN 81 MG TAB.CHEW ONE (08:47)
[2023-08-17] MEDS: ASPIRIN 81 MG TAB.CHEW PO SCH (08:52)
[2023-08-17] MEDS ORDERED: Medication Not On Formulary EA (Olmesartan Medoxomil (Benicar) 20 MG) PO SCH (09:00)
[2023-08-17] MEDS ORDERED: MAGN400T40 PO (11:10)
[2023-08-17] MEDS ORDERED: EMPA25TA PO (11:10)
[2023-08-17] MEDS: LOSARTAN POTASSIUM 50 MG TABLET PO SCH (12:15)
[2023-08-17] MEDS ORDERED: DEXTROSE 50% 50 ML DISP.SYRIN IV PRN (13:15)
[2023-08-17] MEDS ORDERED: FAMOTIDINE 20 MG TABLET ONE (14:18)
[2023-08-17] MEDS ORDERED: FAMOTIDINE 20 MG TABLET PO SCH (14:30)
[2023-08-17 16:20] VITALS: BP 153/53; TEMP 98.1; O2SAT 96
[2023-08-17] MEDS: BLOOD SUGAR DIAGNOSTIC 1 EACH STRIP VI SCH ×2 (16:30→21:14)
[2023-08-17] MEDS: INSULIN REGULAR, HUMAN 300 UNIT/3 ML VIAL SQ PRN ×2 (17:46→21:21)
[2023-08-17 20:20] VITALS: BP 127/55; TEMP 97.8; O2SAT 98
[2023-08-17] MEDS ORDERED: ATORVASTATIN 20 MG TABLET PO SCH (21:00)
[2023-08-18 04:20] VITALS: BP 136/73; TEMP 97.5; O2SAT 99
[2023-08-18] MEDS: BLOOD SUGAR DIAGNOSTIC 1 EACH STRIP VI SCH ×3 (06:41→16:36)
[2023-08-18 06:51] LABS: BASOPHILS % (AUTO) 0.5 % (0.0-2.0); EOSINOPHILS # (AUTO) 0.1 K/uL (0.0-0.7); EOSINOPHILS % (AUTO) 2.7 % (0.0-7.0); HEMATOCRIT 38.3 % (31.2-41.9); HEMOGLOBIN 12.5 g/dL (10.9-14.3); LYMPHOCYTES % (AUTO) 32.2 % (20.5-51.5); MEAN CORPUSCULAR HEMOGLOBIN 28.1 uug (24.7-32.8); MEAN CORPUSCULAR HGB CONC 33 g/dL (32.3-35.6); MEAN CORPUSCULAR VOLUME 86.2 fL (75.5-95.3); MONOCYTES # (AUTO) 0.3 K/uL (0.1-1.30); MONOCYTES % (AUTO) 8.9 % (0.0-11.0); NEUTROPHILS # (AUTO) 1.6 K/uL (1.8-8.9); NEUTROPHILS % (AUTO) 55.7 % (38.5-71.5); PLATELET COUNT (AUTO) 147 K/uL (179-408); RED BLOOD CELL COUNT(AUTO) 4.44 MIL/uL (3.63-4.92); RED CELL DISTRIBUTION WIDTH 14.6 % (12.3-17.7)
[2023-08-18 07:04] LABS: DIFFERENTIAL COMMENT 1
[2023-08-18 07:20] LABS: THYROID STIMULATING HORMONE 1.996 mIU/mL (0.358-3.740)
[2023-08-18 08:02] LABS: CALCIUM 8.8 mg/dL (8.5-10.1); CARBON DIOXIDE 26 mmol/L (21-32); CHLORIDE 101 mmol/L (98-107); CREATININE 1.3 mg/dL (0.6-1.3); GLUCOSE 239 mg/dL (74-106); PHOSPHOROUS 4.5 mg/dL (2.5-4.9); POTASSIUM 3.5 mmol/L (3.5-5.1); SODIUM SERUM 136 mmol/L (136-145); UREA NITROGEN, BLOOD 26 mg/dL (7-18)
[2023-08-18 09:00] VITALS: BP 133/59
[2023-08-18] MEDS: LOSARTAN POTASSIUM 50 MG TABLET PO SCH (09:00)
[2023-08-18] MEDS: ASPIRIN 81 MG TAB.CHEW PO SCH (09:27)
[2023-08-18] MEDS: INSULIN REGULAR, HUMAN 300 UNIT/3 ML VIAL SQ PRN ×2 (09:32→16:36)
[2023-08-18 22:11] LABS: CHOLESTEROL 150 mg/dL (<200); HDL CHOLESTEROL 60 mg/dL (40-60); TRIGLYCERIDES 126 MG/DL (30-150)
== END 2023-08-18 17:00 | disposition home or self-care (01) | DRG 311 ==
LOC: ER 22:04 → TRANSITION 08-17 04:19 → TELE3 08-17 15:00
PROVIDERS: ADMIT Nurse Practitioner Acute Care; ATTEND Nurse Practitioner Acute Care
DX: I24.9 Acute ischemic heart disease, unspecified (principal); E86.0 Dehydration; M79.7 Fibromyalgia; Z86.73 Personal history of transient ischemic attack (TIA), and cerebral infarction without residual deficits; E11.65 Type 2 diabetes mellitus with hyperglycemia; Z79.84 Long term (current) use of oral hypoglycemic drugs; Z79.82 Long term (current) use of aspirin; Z79.899 Other long term (current) drug therapy; R00.1 Bradycardia, unspecified; I10 Essential (primary) hypertension; E78.5 Hyperlipidemia, unspecified; F41.9 Anxiety disorder, unspecified; R79.89 Other specified abnormal findings of blood chemistry; R07.89 Other chest pain; R51.9 Headache, unspecified; I48.91 Unspecified atrial fibrillation
CPT/HCPCS: 36415; 70450; 71045; 83735; 84100; 84443; 84484; 85025; 85730; 93005; A4663; G0378

== ENCOUNTER 2023-09-06 13:41 | Emergency (ER) | payer OTHER ==
[~2023-09-06] VITALS: Ht 157.5 cm; Wt 63.5 kg
[~2023-09-06 13:41] MED LIST changes: +EMPA25TA PO; +MAGN400T40 PO
[2023-09-06 13:44] VITALS: O2SAT 100
[2023-09-06] MEDS ORDERED: CYCLOBENZAPRINE HCL 10 MG TABLET PO ONE (14:15)
[2023-09-06] MEDS ORDERED: ACETAMINOPHEN ES 500 MG TABLET PO ONE (14:15)
[2023-09-06] MEDS ORDERED: ONDANSETRON 4 MG/2 ML VIAL IV ONE (14:15)
[2023-09-06] MEDS ORDERED: KETOROLAC TROMETHAMINE 15 MG INJ IVP ONE (14:15)
[2023-09-06] MEDS ORDERED: IV NORMAL SALINE 500 ML BAG IV ONE (14:15)
[2023-09-06 14:28] LABS: BASOPHILS # (AUTO) 0.1 K/UL (0.0-0.2); BASOPHILS % (AUTO) 1.6 % (0.0-2.0); EOSINOPHILS % (AUTO) 0.8 % (0.0-7.0); HEMATOCRIT 42.7 % (31.2-41.9); HEMOGLOBIN 13.8 g/dL (10.9-14.3); LYMPHOCYTES # (AUTO) 0.9 K/uL (0.8-4.8); MEAN CORPUSCULAR HEMOGLOBIN 27.7 uug (24.7-32.8); MEAN CORPUSCULAR HGB CONC 32 g/dL (32.3-35.6); MEAN CORPUSCULAR VOLUME 85.4 fL (75.5-95.3); MONOCYTES # (AUTO) 0.2 K/uL (0.1-1.30); MONOCYTES % (AUTO) 5.7 % (0.0-11.0); NEUTROPHILS # (AUTO) 2.7 K/uL (1.8-8.9); NEUTROPHILS % (AUTO) 69.9 % (38.5-71.5); PLATELET COUNT (AUTO) 192 K/uL (179-408); RED BLOOD CELL COUNT(AUTO) 4.99 MIL/uL (3.63-4.92); RED CELL DISTRIBUTION WIDTH 14.5 % (12.3-17.7); WHITE BLOOD COUNT (AUTO) 3.9 K/uL (3.8-11.8)
[2023-09-06] MEDS ORDERED: KETOROLAC TROMETHAMINE 15 MG INJ ONE (14:34)
[2023-09-06 14:44] LABS: ALBUMIN 4.2 g/dL (3.4-5.0); BILIRUBIN,DIRECT 0.1 mg/dL (0.0-0.2); BILIRUBIN,TOTAL 0.5 mg/dL (0.2-1.0); CALCIUM 10.1 mg/dL (8.5-10.1); CREATININE 1.1 mg/dL (0.6-1.3); POTASSIUM 4.3 mmol/L (3.5-5.1); TOTAL PROTEIN, SERUM 8.5 g/dL (6.4-8.2)
[2023-09-06 14:55] LABS: DIFFERENTIAL COMMENT 1
[2023-09-06 16:24] LABS: *BILIRUBIN,URIN NEGATIVE (NEGATIVE); *BLOOD, URINE NEGATIVE (NEGATIVE); *CLARITY,URINE CLEAR (CLEAR); *COLOR,URINE YELLOW (YELLOW); *KETONES,URINE TRACE (NEGATIVE); *PROTEIN,URINE NEGATIVE (NEGATIVE); *UROBILINOGEN,URINE 0.2 E.U./dl (NORMAL); LEUKOCYTE ESTERASE ,URINE NEGATIVE (NEGATIVE); NITRITE, URINE NEGATIVE (NEGATIVE); PH,URINE 7.5 (5.0-8.0)
[2023-09-06 16:26] LABS: UGLUCOSE 2+ (NEGATIVE)
[2023-09-06 16:29] LABS: RBC,URINE 0-3 /HPF (0-3); WBC,URINE 0-3 /HPF (0-3)
[2023-09-06 16:30] LABS: BACTERIA,URINE NONE SEEN /HPF (NONE SEEN); SQUAMOUS EPITHELIAL CELL,UR FEW /HPF (NONE SEEN)
[2023-09-06] MEDS ORDERED: CYCL5TAB PO (17:23)
[2023-09-06] MEDS ORDERED: NAPR-1009 PO (17:23)
[2023-09-06] MEDS ORDERED: LIDO30AD10 TP (17:25)
[2023-09-06] MEDS ORDERED: IV NORMAL SALINE 250 ML IV ONE (17:45)
[2023-09-06] MEDS ORDERED: IOHEXOL 350 100 ML INFUS..BTL ONE (17:45)
[2023-09-06] MEDS ORDERED: SWABABLE VALVE TRANSFER SET EA MC ONE (17:45)
== END 2023-09-06 18:44 | disposition home or self-care (01) ==
LOC: ER 13:41
DX: M54.50 Low back pain, unspecified (principal); K52.9 Noninfective gastroenteritis and colitis, unspecified; I10 Essential (primary) hypertension; E78.5 Hyperlipidemia, unspecified; E11.9 Type 2 diabetes mellitus without complications; Z86.73 Personal history of transient ischemic attack (TIA), and cerebral infarction without residual deficits; Z88.5 Allergy status to narcotic agent; Z88.8 Allergy status to other drugs, medicaments and biological substances; Z79.82 Long term (current) use of aspirin; Z79.899 Other long term (current) drug therapy
CPT/HCPCS: 99285; 74176; 96374; 96361; 96375; 80076; 80048; 81001; 83690; 85025; 36415; J1885; J7040; A4606; A4663; Q9967

== ENCOUNTER 2024-05-12 12:56 | Emergency (ER) | payer OTHER, MEDICAID ==
[~2024-05-12] VITALS: Ht 157.5 cm; Wt 69.9 kg
[~2024-05-12 12:56] MED LIST changes: +CYCL5TAB PO; +LIDO30AD10 TP; +NAPR-1009 PO
[2024-05-12] MEDS ORDERED: SEMA7TAB PO (13:10)
[2024-05-12] MEDS ORDERED: ONDA4TAB11 PO (14:27)
[2024-05-12] MEDS ORDERED: HYDR-3972 PO (14:27)
[2024-05-12 14:57] VITALS: BP 136/69; O2SAT 98
== END 2024-05-12 14:35 | disposition home or self-care (01) ==
LOC: ER 12:56
DX: S22.32XA Fracture of one rib, left side, initial encounter for closed fracture (principal); E11.9 Type 2 diabetes mellitus without complications; F41.9 Anxiety disorder, unspecified; Z79.82 Long term (current) use of aspirin; Z79.899 Other long term (current) drug therapy; Z79.891 Long term (current) use of opiate analgesic; Z60.2 Problems related to living alone; Z88.2 Allergy status to sulfonamides; Z88.5 Allergy status to narcotic agent; X58.XXXA Exposure to other specified factors, initial encounter; Y93.89 Activity, other specified; Y92.89 Other specified places as the place of occurrence of the external cause; Y99.8 Other external cause status
CPT/HCPCS: 71250; 93005; A4606; A4663

== ENCOUNTER 2024-05-28 18:30 | Emergency (ER) | payer OTHER, MEDICAID ==
[~2024-05-28] VITALS: Ht 160 cm; Wt 69.9 kg
[~2024-05-28 18:30] MED LIST changes: -ATOR20TA PO; -BROM2.5T15 PO; -CYCL5TAB PO; -EMPA25TA PO; +HYDR-3972 PO; +ONDA4TAB11 PO; +SEMA7TAB PO
[2024-05-28] MEDS ORDERED: LABETALOL HCL 100 MG/20 ML VIAL ONE (18:59)
[2024-05-28 19:07] LABS: BASOPHILS % (AUTO) 0.7 % (0.0-2.0); DIFFERENTIAL COMMENT 1; EOSINOPHILS # (AUTO) 0.1 K/uL (0.0-0.7); HEMATOCRIT 37.9 % (31.2-41.9); HEMOGLOBIN 12.5 g/dL (10.9-14.3); LYMPHOCYTES # (AUTO) 1.3 K/uL (0.8-4.8); LYMPHOCYTES % (AUTO) 30.5 % (20.5-51.5); MEAN CORPUSCULAR HEMOGLOBIN 28.6 uug (24.7-32.8); MEAN CORPUSCULAR HGB CONC 33 g/dL (32.3-35.6); MEAN CORPUSCULAR VOLUME 86.4 fL (75.5-95.3); MONOCYTES # (AUTO) 0.4 K/uL (0.1-1.30); MONOCYTES % (AUTO) 9.9 % (0.0-11.0); NEUTROPHILS # (AUTO) 2.4 K/uL (1.8-8.9); NEUTROPHILS % (AUTO) 56.9 % (38.5-71.5); PLATELET COUNT (AUTO) 184 K/uL (179-408); RED BLOOD CELL COUNT(AUTO) 4.38 MIL/uL (3.63-4.92); RED CELL DISTRIBUTION WIDTH 14.5 % (12.3-17.7); WHITE BLOOD COUNT (AUTO) 4.1 K/uL (3.8-11.8)
[2024-05-28] MEDS ORDERED: ASPIRIN 325 MG TABLET ONE (19:07)
[2024-05-28] MEDS ORDERED: ONDANSETRON 4 MG/2 ML VIAL ONE ×2 (19:07→20:13)
[2024-05-28] MEDS: LABETALOL HCL 100 MG/20 ML VIAL IV ONE (19:07)
[2024-05-28] MEDS ORDERED: MORPHINE SULFATE 4 MG/1 ML DISP.SYRIN ONE (19:08)
[2024-05-28 19:12] LABS: CARBON DIOXIDE 27 mmol/L (21-32); CHLORIDE 102 mmol/L (98-107); CREATININE 1.1 mg/dL (0.6-1.3); GLUCOSE 114 mg/dL (74-106); POTASSIUM 4.2 mmol/L (3.5-5.1); SODIUM SERUM 139 mmol/L (136-145); UREA NITROGEN, BLOOD 15 mg/dL (7-18)
[2024-05-28] MEDS: MORPHINE SULFATE 4 MG/1 ML DISP.SYRIN IV ONE (19:16)
[2024-05-28] MEDS: ASPIRIN 325 MG TABLET PO ONE (19:17)
[2024-05-28] MEDS: ONDANSETRON 4 MG/2 ML VIAL IV ONE ×2 (19:17→20:15)
[2024-05-28 19:21] LABS: ALANINE AMINOTRANSFERASE 28 U/L (14-59); ALBUMIN 3.5 g/dL (3.4-5.0); ALKALINE PHOSPHATASE 117 U/L (50-136); ASPARTATE AMINOTRANSFERASE 16 U/L (15-37); BILIRUBIN,DIRECT 0.1 mg/dL (0.0-0.2); BILIRUBIN,TOTAL 0.4 mg/dL (0.2-1.0); TOTAL PROTEIN, SERUM 7.3 g/dL (6.4-8.2)
[2024-05-28] MEDS ORDERED: SWABABLE VALVE TRANSFER SET EA MC ONE (19:59)
[2024-05-28] MEDS ORDERED: IOHEXOL 350 100 ML INFUS..BTL ONE (19:59)
[2024-05-28] MEDS ORDERED: IV NORMAL SALINE 250 ML IV ONE (19:59)
[2024-05-28] MEDS ORDERED: hydrALAZINE HCL 20 MG/1 ML VIAL ONE (20:35)
[2024-05-28 20:40] VITALS: BP 178/68
[2024-05-28] MEDS: hydrALAZINE HCL 20 MG/1 ML VIAL IV ONE (20:40)
[2024-05-28 21:00] LABS: *BILIRUBIN,URIN NEGATIVE (NEGATIVE); *BLOOD, URINE NEGATIVE (NEGATIVE); *CLARITY,URINE CLEAR (CLEAR); *COLOR,URINE YELLOW (YELLOW); *KETONES,URINE NEGATIVE (NEGATIVE); *PROTEIN,URINE NEGATIVE (NEGATIVE); *UROBILINOGEN,URINE 0.2 E.U./dl (NORMAL); LEUKOCYTE ESTERASE ,URINE NEGATIVE (NEGATIVE); NITRITE, URINE NEGATIVE (NEGATIVE); UGLUCOSE NEGATIVE (NEGATIVE)
[2024-05-28 22:40] VITALS: O2SAT 100
[2024-05-28] MEDS ORDERED: LORAZEPAM 2 MG/1 ML VIAL ONE (23:39)
[2024-05-28] MEDS: LORAZEPAM 2 MG/1 ML VIAL IV ONE (23:40)
== END 2024-05-29 02:30 | disposition short-term general hospital (02) ==
LOC: ER 18:31
DX: G45.9 Transient cerebral ischemic attack, unspecified (principal); I10 Essential (primary) hypertension; R51.9 Headache, unspecified; E11.9 Type 2 diabetes mellitus without complications; Z79.891 Long term (current) use of opiate analgesic; Z79.82 Long term (current) use of aspirin; Z79.899 Other long term (current) drug therapy; Z20.822 Contact with and (suspected) exposure to COVID-19; Z60.2 Problems related to living alone; Z88.2 Allergy status to sulfonamides; Z88.5 Allergy status to narcotic agent
CPT/HCPCS: 99291; 70496; 96374; 96375; 71045; 87426; 80076; 80048; 81003; 82962; 85025; 85730; 84484 ×2; 36415; 93005; 70498; 96376; 70450; J0360; J3490; J2060; J2405 ×2; Q9967; J2270; A4606; A4663

== ENCOUNTER 2024-07-08 16:04 | Inpatient (IN) | payer MEDICARE, OTHER ==
[~2024-07-08] VITALS: Ht 165.1 cm; Wt 64.4 kg
[2024-07-08 17:38] LABS: BASOPHILS % (AUTO) 0.6 % (0.0-2.0); EOSINOPHILS # (AUTO) 0.1 K/uL (0.0-0.7); EOSINOPHILS % (AUTO) 1.7 % (0.0-7.0); HEMATOCRIT 37.2 % (31.2-41.9); HEMOGLOBIN 11.9 g/dL (10.9-14.3); LYMPHOCYTES # (AUTO) 0.8 K/uL (0.8-4.8); LYMPHOCYTES % (AUTO) 21.6 % (20.5-51.5); MEAN CORPUSCULAR HEMOGLOBIN 27.9 uug (24.7-32.8); MEAN CORPUSCULAR HGB CONC 32 g/dL (32.3-35.6); MEAN CORPUSCULAR VOLUME 86.8 fL (75.5-95.3); MONOCYTES # (AUTO) 0.3 K/uL (0.1-1.30); MONOCYTES % (AUTO) 9.3 % (0.0-11.0); NEUTROPHILS # (AUTO) 2.3 K/uL (1.8-8.9); NEUTROPHILS % (AUTO) 66.8 % (38.5-71.5); PLATELET COUNT (AUTO) 179 K/uL (179-408); RED BLOOD CELL COUNT(AUTO) 4.28 MIL/uL (3.63-4.92); RED CELL DISTRIBUTION WIDTH 14.3 % (12.3-17.7); WHITE BLOOD COUNT (AUTO) 3.5 K/uL (3.8-11.8)
[2024-07-08 17:44] LABS: DIFFERENTIAL COMMENT 1
[2024-07-08 17:45] LABS: CALCIUM 8.7 mg/dL (8.5-10.1); CARBON DIOXIDE 28 mmol/L (21-32); CHLORIDE 106 mmol/L (98-107); GLUCOSE 165 mg/dL (74-106); POTASSIUM 4.7 mmol/L (3.5-5.1); SODIUM SERUM 142 mmol/L (136-145); UREA NITROGEN, BLOOD 16 mg/dL (7-18)
[2024-07-08 17:51] LABS: ALANINE AMINOTRANSFERASE 33 U/L (14-59); ALBUMIN 3.3 g/dL (3.4-5.0); ALKALINE PHOSPHATASE 102 U/L (50-136); ASPARTATE AMINOTRANSFERASE 20 U/L (15-37); BILIRUBIN,TOTAL 0.4 mg/dL (0.2-1.0); TOTAL PROTEIN, SERUM 6.8 g/dL (6.4-8.2)
[2024-07-08] MEDS ORDERED: REMEDY ESSENTIAL ZINC PASTE 113 GM TP PRN (20:30)
[2024-07-08] MEDS ORDERED: MAGNESIUM HYDROXIDE 30 ML LIQUID UDC PO PRN (20:30)
[2024-07-08] MEDS ORDERED: ONDANSETRON 4 MG/2 ML VIAL IV PRN (20:30)
[2024-07-08] MEDS ORDERED: DEXTROSE 50% 50 ML DISP.SYRIN IV PRN (20:30)
[2024-07-08] MEDS ORDERED: SWABABLE VALVE TRANSFER SET EA MC ONE (20:38)
[2024-07-08] MEDS ORDERED: IV NORMAL SALINE 250 ML IV ONE (20:38)
[2024-07-08] MEDS ORDERED: IOHEXOL 350 100 ML INFUS..BTL ONE (20:38)
[2024-07-08 20:43] LABS: *BILIRUBIN,URIN NEGATIVE (NEGATIVE); *BLOOD, URINE NEGATIVE (NEGATIVE); *CLARITY,URINE CLEAR (CLEAR); *COLOR,URINE YELLOW (YELLOW); *KETONES,URINE NEGATIVE (NEGATIVE); *PROTEIN,URINE NEGATIVE (NEGATIVE); *UROBILINOGEN,URINE 0.2 E.U./dl (NORMAL); LEUKOCYTE ESTERASE ,URINE NEGATIVE (NEGATIVE); NITRITE, URINE NEGATIVE (NEGATIVE); UGLUCOSE NEGATIVE (NEGATIVE)
[2024-07-08] MEDS: BLOOD SUGAR DIAGNOSTIC 1 EACH STRIP VI SCH (22:13)
[2024-07-08] MEDS: ENOXAPARIN SODIUM 40 MG/0.4 ML DISP.SYRIN SQ SCH (22:14)
[2024-07-08] MEDS: INSULIN REGULAR, HUMAN 1000 UNIT/10 ML VIAL SQ PRN (22:16)
[2024-07-08 22:58] VITALS: BP 157/54; TEMP 97.5; O2SAT 97
[2024-07-09 05:52] VITALS: BP 134/48; TEMP 97.5; O2SAT 95
[2024-07-09] MEDS: PANTOPRAZOLE SODIUM 40 MG TABLET.DR PO SCH (06:22)
[2024-07-09 07:22] LABS: BASOPHILS % (AUTO) 0.6 % (0.0-2.0); EOSINOPHILS # (AUTO) 0.1 K/uL (0.0-0.7); EOSINOPHILS % (AUTO) 2.7 % (0.0-7.0); HEMOGLOBIN 11.9 g/dL (10.9-14.3); MEAN CORPUSCULAR HEMOGLOBIN 28.7 uug (24.7-32.8); MEAN CORPUSCULAR HGB CONC 33 g/dL (32.3-35.6); MEAN CORPUSCULAR VOLUME 86.9 fL (75.5-95.3); MONOCYTES # (AUTO) 0.3 K/uL (0.1-1.30); MONOCYTES % (AUTO) 10.4 % (0.0-11.0); NEUTROPHILS # (AUTO) 1.8 K/uL (1.8-8.9); NEUTROPHILS % (AUTO) 56.3 % (38.5-71.5); PLATELET COUNT (AUTO) 178 K/uL (179-408); RED BLOOD CELL COUNT(AUTO) 4.14 MIL/uL (3.63-4.92); RED CELL DISTRIBUTION WIDTH 14.4 % (12.3-17.7); WHITE BLOOD COUNT (AUTO) 3.2 K/uL (3.8-11.8)
[2024-07-09 07:35] LABS: DIFFERENTIAL COMMENT 1
[2024-07-09 07:45] LABS: THYROID STIMULATING HORMONE 2.048 mIU/mL (0.358-3.740)
[2024-07-09 07:56] VITALS: BP 135/55; TEMP 97.9; O2SAT 96
[2024-07-09] MEDS: CLOPIDOGREL 75 MG TABLET PO SCH (08:28)
[2024-07-09] MEDS: ASPIRIN 81 MG TAB.CHEW PO SCH (08:28)
[2024-07-09] MEDS: LORAZEPAM 0.5 MG TABLET PO ONE (08:28)
[2024-07-09 08:47] LABS: CALCIUM 8.8 mg/dL (8.5-10.1); CARBON DIOXIDE 27 mmol/L (21-32); CHLORIDE 107 mmol/L (98-107); CREATININE 0.9 mg/dL (0.6-1.3); GLUCOSE 155 mg/dL (74-106); MAGNESIUM 1.8 mg/dL (1.8-2.4); PHOSPHOROUS 3.6 mg/dL (2.5-4.9); POTASSIUM 4.2 mmol/L (3.5-5.1); SODIUM SERUM 143 mmol/L (136-145); UREA NITROGEN, BLOOD 17 mg/dL (7-18)
[2024-07-09] MEDS ORDERED: SWABABLE VALVE TRANSFER SET EA MC ONE (08:53)
[2024-07-09] MEDS ORDERED: IOHEXOL 350 100 ML INFUS..BTL ONE (08:53)
[2024-07-09] MEDS ORDERED: IV NORMAL SALINE 250 ML IV ONE (08:53)
[2024-07-09] MEDS ORDERED: TOPI25TA49 PO (09:34)
[2024-07-09] MEDS ORDERED: LATA7.5D EACHEYE (09:34)
[2024-07-09] MEDS ORDERED: CLOP75TA15 PO (09:34)
[2024-07-09] MEDS ORDERED: EZET10TA15 PO (09:58)
[2024-07-09 11:29] LABS: CHOLESTEROL 154 mg/dL (<200); HDL CHOLESTEROL 53 mg/dL (40-60); TRIGLYCERIDES 111 MG/DL (30-150)
[2024-07-09 11:53] VITALS: BP 137/63; TEMP 97.7; O2SAT 93
[2024-07-09 12:59] LABS: THYROID STIMULATING HORMONE 2.232 mIU/mL (0.358-3.740)
[2024-07-09 16:00] VITALS: BP 109/46; TEMP 97.5; O2SAT 95
[2024-07-09 20:00] VITALS: BP 140/49; TEMP 98.3; O2SAT 96
[2024-07-09] MEDS: LATANOPROST OPHT DROP 2.5 ML BOTTLE OP SCH (20:36)
[2024-07-09] MEDS ORDERED: TEMAZEPAM 7.5 MG CAPSULE PO PRN (21:00)
[2024-07-09] MEDS ORDERED: POLYVINYL ALCOHOL OPHT DROPS 15 ML BOTTLE EACHEYE PRN (21:00)
[2024-07-09] MEDS ORDERED: POLYVINYL ALCOHOL OPHT DROPS 15 ML BOTTLE ONE (21:22)
[2024-07-10] VITALS: BP 127/61; TEMP 97.9; O2SAT 88
[2024-07-10 04:00] VITALS: BP 126/55; TEMP 98; O2SAT 98
[2024-07-10 08:00] VITALS: BP 127/58; TEMP 97.5; O2SAT 95
[2024-07-10] MEDS: EZETIMIBE 10 MG TABLET PO SCH (08:22)
[2024-07-10 11:59] VITALS: BP 125/55; TEMP 98; O2SAT 98
[2024-07-10 16:02] VITALS: BP 122/57; TEMP 98.1; O2SAT 96
[2024-07-10 20:00] VITALS: BP 121/57; TEMP 97.9; O2SAT 96
[2024-07-11] MEDS: ACETAMINOPHEN 325 MG TABLET PO PRN (02:40)
[2024-07-11 06:00] VITALS: BP 137/51; TEMP 97.6; O2SAT 99
[2024-07-11 07:25] LABS: BASOPHILS % (AUTO) 0.4 % (0.0-2.0); CALCIUM 8.6 mg/dL (8.5-10.1); CARBON DIOXIDE 27 mmol/L (21-32); CHLORIDE 106 mmol/L (98-107); EOSINOPHILS # (AUTO) 0.1 K/uL (0.0-0.7); EOSINOPHILS % (AUTO) 1.5 % (0.0-7.0); GLUCOSE 174 mg/dL (74-106); HEMATOCRIT 34.9 % (31.2-41.9); HEMOGLOBIN 11.5 g/dL (10.9-14.3); LYMPHOCYTES % (AUTO) 20.7 % (20.5-51.5); MEAN CORPUSCULAR HEMOGLOBIN 28.5 uug (24.7-32.8); MEAN CORPUSCULAR HGB CONC 33 g/dL (32.3-35.6); MEAN CORPUSCULAR VOLUME 86.7 fL (75.5-95.3); MONOCYTES # (AUTO) 0.5 K/uL (0.1-1.30); MONOCYTES % (AUTO) 10.5 % (0.0-11.0); NEUTROPHILS # (AUTO) 3.3 K/uL (1.8-8.9); NEUTROPHILS % (AUTO) 66.9 % (38.5-71.5); PLATELET COUNT (AUTO) 165 K/uL (179-408); POTASSIUM 4.3 mmol/L (3.5-5.1); RED BLOOD CELL COUNT(AUTO) 4.03 MIL/uL (3.63-4.92); SODIUM SERUM 142 mmol/L (136-145); UREA NITROGEN, BLOOD 24 mg/dL (7-18); WHITE BLOOD COUNT (AUTO) 4.9 K/uL (3.8-11.8)
[2024-07-11 07:27] LABS: DIFFERENTIAL COMMENT 1
[2024-07-11 11:38] VITALS: BP 142/55; TEMP 98.4; O2SAT 92
[2024-07-11 16:00] VITALS: BP 125/44; TEMP 98.3; O2SAT 96
[2024-07-11 20:30] VITALS: BP 143/66; TEMP 98.1; O2SAT 96
[2024-07-12 06:40] VITALS: BP 122/49; TEMP 98.2; O2SAT 96
[2024-07-12] MEDS: CALCIUM CARBONATE 500 MG TABLET PO SCH (08:18)
[2024-07-12 08:20] VITALS: BP 143/66; TEMP 98.4; O2SAT 96
[2024-07-12] MEDS ORDERED: CLOP75TA33 PO (10:11)
[2024-07-12] MEDS ORDERED: EZET10TA32 PO (10:11)
[2024-07-12] MEDS ORDERED: CALC500T53 PO (10:11)
[2024-07-12] MEDS ORDERED: LATA2.5D2 OP (10:11)
== END 2024-07-12 13:00 | disposition home or self-care (01) | DRG 66 ==
LOC: ER 16:13 → TELE3 20:33 → MEDSURG3 07-10 09:06
PROVIDERS: ADMIT Nurse Practitioner Family
DX: I63.89 Other cerebral infarction (principal); R20.9 Unspecified disturbances of skin sensation; R29.701 NIHSS score 1; M79.18 Myalgia, other site; M54.50 Low back pain, unspecified; G89.29 Other chronic pain; E78.5 Hyperlipidemia, unspecified; F41.9 Anxiety disorder, unspecified; Z79.02 Long term (current) use of antithrombotics/antiplatelets; E11.65 Type 2 diabetes mellitus with hyperglycemia; Z79.84 Long term (current) use of oral hypoglycemic drugs; Z79.82 Long term (current) use of aspirin; I69.398 Other sequelae of cerebral infarction; G93.89 Other specified disorders of brain; I10 Essential (primary) hypertension; D35.2 Benign neoplasm of pituitary gland; Z88.2 Allergy status to sulfonamides; R00.1 Bradycardia, unspecified
CPT/HCPCS: 36415; 70450; 70496; 83735; 83921; 84100; 84443; 85025; 85730; 93005; 93307; A4663; G0378; J1650; J1815; Q9967

== ENCOUNTER 2025-04-10 12:36 | Inpatient (IN) | payer MEDICARE, OTHER ==
[~2025-04-10] VITALS: Ht 160 cm; Wt 71.7 kg
[~2025-04-10 12:36] MED LIST changes: +CALC500T53 PO; +CLOP75TA15 PO; +CLOP75TA33 PO; +EZET10TA15 PO; +EZET10TA32 PO; -HYDR-3972 PO; +LATA2.5D2 OP; +LATA7.5D EACHEYE; -LIDO30AD10 TP; -NAPR-1009 PO; -ONDA4TAB11 PO; +TOPI25TA49 PO
[2025-04-10] MEDS ORDERED: GABA-532 PO (12:54)
[2025-04-10] MEDS ORDERED: OLME20TA23 PO (12:54)
[2025-04-10] MEDS ORDERED: SEMA14TA PO (12:54)
[2025-04-10] MEDS ORDERED: METF-440 PO (12:54)
[2025-04-10] MEDS ORDERED: ZOLP5TAB2 PO ×2 (12:54→16:49)
[2025-04-10 13:13] LABS: EOSINOPHILS % (AUTO) 1.3 % (0.0-7.0); HEMATOCRIT 38.2 % (31.2-41.9); HEMOGLOBIN 12.7 g/dL (10.9-14.3); LYMPHOCYTES # (AUTO) 0.7 K/uL (0.8-4.8); LYMPHOCYTES % (AUTO) 24.5 % (20.5-51.5); MEAN CORPUSCULAR HEMOGLOBIN 28.1 uug (24.7-32.8); MEAN CORPUSCULAR HGB CONC 33 g/dL (32.3-35.6); MEAN CORPUSCULAR VOLUME 84.6 fL (75.5-95.3); MONOCYTES # (AUTO) 0.3 K/uL (0.1-1.30); MONOCYTES % (AUTO) 9.5 % (0.0-11.0); NEUTROPHILS # (AUTO) 1.9 K/uL (1.8-8.9); NEUTROPHILS % (AUTO) 63.7 % (38.5-71.5); PLATELET COUNT (AUTO) 161 K/uL (179-408); RED BLOOD CELL COUNT(AUTO) 4.52 MIL/uL (3.63-4.92); RED CELL DISTRIBUTION WIDTH 14.1 % (12.3-17.7)
[2025-04-10 13:23] LABS: CALCIUM 8.7 mg/dL (8.5-10.1); CARBON DIOXIDE 26 mmol/L (21-32); CHLORIDE 104 mmol/L (98-107); GLUCOSE 166 mg/dL (74-106); POTASSIUM 4.1 mmol/L (3.5-5.1); SODIUM SERUM 141 mmol/L (136-145); UREA NITROGEN, BLOOD 19 mg/dL (7-18)
[2025-04-10 13:33] LABS: DIFFERENTIAL COMMENT 1
[2025-04-10 13:35] LABS: ALANINE AMINOTRANSFERASE 26 U/L (14-59); ALBUMIN 3.4 g/dL (3.4-5.0); ALKALINE PHOSPHATASE 80 U/L (50-136); ASPARTATE AMINOTRANSFERASE 18 U/L (15-37); BILIRUBIN,DIRECT 0.1 mg/dL (0.0-0.2); BILIRUBIN,TOTAL 0.4 mg/dL (0.2-1.0); NT-PRO BNP 323 pg/mL (0-125); TOTAL PROTEIN, SERUM 6.7 g/dL (6.4-8.2)
[2025-04-10] MEDS: IV NORMAL SALINE 1000 ML BAG IV ONE (13:46)
[2025-04-10] MEDS ORDERED: diphenhydrAMINE 50 MG/1 ML VIAL ONE (13:56)
[2025-04-10] MEDS ORDERED: KETOROLAC TROMETHAMINE 30 MG INJ ONE (13:56)
[2025-04-10] MEDS ORDERED: METOCLOPRAMIDE HCL 10 MG/2 ML VIAL ONE (13:56)
[2025-04-10] MEDS: diphenhydrAMINE 50 MG/1 ML VIAL IV ONE (13:57)
[2025-04-10] MEDS: KETOROLAC TROMETHAMINE 30 MG INJ IVP ONE (13:59)
[2025-04-10] MEDS: METOCLOPRAMIDE HCL 10 MG/2 ML VIAL IV ONE (14:00)
[2025-04-10] MEDS ORDERED: TOPIRAMATE 25 MG TABLET PO PRN (15:30)
[2025-04-10] MEDS ORDERED: ONDANSETRON 4 MG/2 ML VIAL IV PRN (15:30)
[2025-04-10] MEDS ORDERED: MAGNESIUM HYDROXIDE 30 ML LIQUID UDC PO PRN (15:30)
[2025-04-10 16:49] VITALS: BP 144/56; TEMP 97.9; O2SAT 97
[2025-04-10] MEDS ORDERED: LATA2.5D15 EACHEYE (16:50)
[2025-04-10] MEDS: IV NS 1000 ML 1,000 ML IV PRN (16:52)
[2025-04-10] MEDS ORDERED: METFORMIN HCL 500 MG TABLET PO SCH (17:00)
[2025-04-10] MEDS: SUMATRIPTAN SUCCINATE 50 MG TABLET PO ONE (17:12)
[2025-04-10] MEDS ORDERED: GABAPENTIN 100 MG CAPSULE PO SCH (18:00)
[2025-04-10 19:52] VITALS: BP 158/62; TEMP 98.3; O2SAT 94
[2025-04-10 21:00] VITALS: BP_SYST 143; BP_SYST 148; BP_SYST 99; BP_DIAS 44; BP_DIAS 49; BP_DIAS 56
[2025-04-10] MEDS: LATANOPROST OPHT DROP 2.5 ML BOTTLE OP SCH (21:04)
[2025-04-10] MEDS: REMEDY ESSENTIAL ZINC PASTE 113 GM TP PRN (21:07)
[2025-04-11] VITALS (8 sets, daily range): BP systolic 118–170; BP diastolic 46–66; TEMP 97.4–98.3; O2SAT 94–99
[2025-04-11 04:17] LABS: *BILIRUBIN,URIN NEGATIVE (NEGATIVE); *BLOOD, URINE NEGATIVE (NEGATIVE); *CLARITY,URINE CLEAR (CLEAR); *COLOR,URINE YELLOW (YELLOW); *KETONES,URINE NEGATIVE (NEGATIVE); *PROTEIN,URINE NEGATIVE (NEGATIVE); *UROBILINOGEN,URINE 0.2 E.U./dl (NORMAL); LEUKOCYTE ESTERASE ,URINE NEGATIVE (NEGATIVE); NITRITE, URINE NEGATIVE (NEGATIVE); PH,URINE 5.5 (5.0-8.0); UGLUCOSE NEGATIVE (NEGATIVE)
[2025-04-11 07:36] LABS: BASOPHILS % (AUTO) 0.7 % (0.0-2.0); EOSINOPHILS # (AUTO) 0.1 K/uL (0.0-0.7); EOSINOPHILS % (AUTO) 2.6 % (0.0-7.0); HEMATOCRIT 33.9 % (31.2-41.9); HEMOGLOBIN 11.4 g/dL (10.9-14.3); LYMPHOCYTES % (AUTO) 34.3 % (20.5-51.5); MEAN CORPUSCULAR HEMOGLOBIN 28.6 uug (24.7-32.8); MEAN CORPUSCULAR HGB CONC 34 g/dL (32.3-35.6); MEAN CORPUSCULAR VOLUME 84.9 fL (75.5-95.3); MONOCYTES # (AUTO) 0.3 K/uL (0.1-1.30); MONOCYTES % (AUTO) 9.9 % (0.0-11.0); NEUTROPHILS # (AUTO) 1.5 K/uL (1.8-8.9); NEUTROPHILS % (AUTO) 52.5 % (38.5-71.5); PLATELET COUNT (AUTO) 134 K/uL (179-408); RED CELL DISTRIBUTION WIDTH 13.7 % (12.3-17.7); WHITE BLOOD COUNT (AUTO) 2.9 K/uL (3.8-11.8)
[2025-04-11 07:40] LABS: DIFFERENTIAL COMMENT 1
[2025-04-11 07:47] LABS: ALANINE AMINOTRANSFERASE 20 U/L (14-59); ALBUMIN 2.7 g/dL (3.4-5.0); ALKALINE PHOSPHATASE 64 U/L (50-136); ASPARTATE AMINOTRANSFERASE 18 U/L (15-37); BILIRUBIN,TOTAL 0.3 mg/dL (0.2-1.0); CALCIUM 8.3 mg/dL (8.5-10.1); CARBON DIOXIDE 27 mmol/L (21-32); CHLORIDE 109 mmol/L (98-107); CREATININE 1.1 mg/dL (0.6-1.3); GLUCOSE 111 mg/dL (74-106); PHOSPHOROUS 3.9 mg/dL (2.5-4.9); POTASSIUM 4.3 mmol/L (3.5-5.1); SODIUM SERUM 144 mmol/L (136-145); TOTAL PROTEIN, SERUM 5.8 g/dL (6.4-8.2); UREA NITROGEN, BLOOD 26 mg/dL (7-18)
[2025-04-11] MEDS: ASPIRIN 81 MG TAB.CHEW PO SCH (08:03)
[2025-04-11] MEDS: EZETIMIBE 10 MG TABLET PO SCH (08:03)
[2025-04-11] MEDS: LOSARTAN POTASSIUM 50 MG TABLET PO SCH (08:03)
[2025-04-11] MEDS: CLOPIDOGREL 75 MG TABLET PO SCH (08:04)
[2025-04-11] MEDS ORDERED: Medication Not On Formulary EA (Olmesartan Medoxomil (Benicar) 20 MG) PO SCH (09:00)
[2025-04-11] MEDS ORDERED: CALCIUM CARBONATE 500 MG TABLET PO SCH (09:00)
[2025-04-11] MEDS: SUMATRIPTAN SUCCINATE 50 MG TABLET PO PRN (14:59)
[2025-04-11] MEDS: HYDROCHLOROTHIAZIDE 25 MG TABLET PO SCH (15:17)
[2025-04-11] MEDS: SUMATRIPTAN SUCCINATE 50 MG TABLET PO ONE (17:14)
[2025-04-11] MEDS ORDERED: KETOROLAC TROMETHAMINE 30 MG INJ IM PRN (17:15)
[2025-04-12 00:17] VITALS: BP 158/55; TEMP 97.8; O2SAT 96
[2025-04-12 04:45] VITALS: BP 138/53; TEMP 97.5; O2SAT 96
[2025-04-12 07:47] VITALS: BP 134/68; TEMP 97.6; O2SAT 99
[2025-04-12] MEDS: LIDOCAINE 5% PATCH TD SCH (08:17)
[2025-04-12 12:00] VITALS: BP 126/58; TEMP 98.2; O2SAT 99
[2025-04-12] MEDS ORDERED: SUMATRIPTAN SUCCINATE 50 MG TABLET PO PRN ×2 (14:45)
[2025-04-12 16:38] VITALS: BP 147/70; TEMP 98; O2SAT 100
[2025-04-12 19:00] VITALS: BP 134/58; TEMP 98; O2SAT 99
[2025-04-12] MEDS: ACETAMINOPHEN 325 MG TABLET PO PRN (21:22)
[2025-04-13] VITALS: BP 119/55; TEMP 97.7; O2SAT 98
[2025-04-13 04:00] VITALS: BP 128/43; TEMP 97.8; O2SAT 100
[2025-04-13 07:54] VITALS: BP 120/56; TEMP 97.8; O2SAT 99
[2025-04-13 11:54] VITALS: BP 118/52; TEMP 98.1; O2SAT 96
[2025-04-13] MEDS ORDERED: HYDR25TA4 PO (14:16)
[2025-04-13] MEDS ORDERED: LIDO30AD10 TD (14:16)
[2025-04-13] MEDS ORDERED: SUMA50TA PO (14:16)
[2025-04-13] MEDS ORDERED: MECLIZINE HCL 12.5 MG TABLET PO PRN (15:15)
[2025-04-13] MEDS ORDERED: MECL-225 PO (15:33)
== END 2025-04-13 15:30 | disposition home or self-care (01) | DRG 103 ==
LOC: ER 12:36 → TELE3 15:51
PROVIDERS: ADMIT Nurse Practitioner Acute Care; ATTEND Nurse Practitioner Acute Care
DX: G43.909 Migraine, unspecified, not intractable, without status migrainosus (principal); D72.819 Decreased white blood cell count, unspecified; R00.1 Bradycardia, unspecified; F41.9 Anxiety disorder, unspecified; E78.5 Hyperlipidemia, unspecified; Z86.73 Personal history of transient ischemic attack (TIA), and cerebral infarction without residual deficits; Z79.02 Long term (current) use of antithrombotics/antiplatelets; G89.29 Other chronic pain; Z86.018 Personal history of other benign neoplasm; Z79.82 Long term (current) use of aspirin; R53.1 Weakness; Z88.5 Allergy status to narcotic agent; Z88.2 Allergy status to sulfonamides; G93.89 Other specified disorders of brain; Z87.828 Personal history of other (healed) physical injury and trauma; E11.40 Type 2 diabetes mellitus with diabetic neuropathy, unspecified; I10 Essential (primary) hypertension; R79.89 Other specified abnormal findings of blood chemistry
CPT/HCPCS: 36415; 70450; 71045; 72125; 83735; 84100; 84484; 85025; 93005; A4606; A4663; G0378; J1200; J1885; J2765; J7040